=== PATIENT | female | born 1950 | race Caucasian/White ===

== ENCOUNTER 2018-12-28 08:46 | Emergency (ER) | payer MEDICARE, OTHER, SELFPAY ==
[2018-12-28 08:50] VITALS: BP 166/96; PULSE 60; RESP 19; TEMP 36.5; O2SAT 100; BMI 20.5
--- NOTE | 2018-12-28 09:33 | ED.UPPEXIN ---
HPI - Extremity Injury (Upper) General Chief Complaint: Extremity Injury, Upper Stated Complaint: fell thursday, cut arm, swollen Time Seen by Provider: 12/28/18 08:50 Source: patient and family Mode of arrival: ambulatory Limitations: no limitations History of Present Illness HPI narrative: 68F non smoker presents with and chief complaint of R elbow pain after she stumbled while walking down some stairs over the weekend. She misstepped on a stair and hit her elbow on a corner and suffered a small abrasion. She had minimal bleeding which was stopped with a Band-Aid. She has full range of motion without pain and denies other injury. She has a bit of swelling and bruising on her medial elbow and wanted to be seen to be sure there is no significant infection or underlying injury. She denies any numbness, tingling or weakness MD complaint: injury to: left and right Onset (ago): day(s) Other injuries: none Handedness: right Place: home Severity: mild Relieving factors: none Exacerbating factors: movement of extremity Context: direct blow Associated symptoms: denies other symptoms Related Data Allergies Allergy/AdvReac Type Severity Reaction Status Date / Time No Known Drug Allergies Allergy Verified 12/28/18 09:01 Review of Systems Constitutional Denies chills, Denies fever(s), Denies lethargy and Denies weakness Eyes Denies change in vision, Denies eye discharge, Denies irritation and Denies loss of vision ENT Ears, Nose, Mouth, and Throat: Denies change in voice, Denies neck pain and Denies sore throat Cardiovascular Denies chest pain, Denies irregular heart rhythm, Denies lightheadedness, Denies palpitations, Denies dyspnea, Denies dyspnea on exertion and Denies orthopnea Respiratory Denies cough, Denies dyspnea, Denies dyspnea on exertion and Denies wheezing Gastrointestinal Gastrointestinal: Denies abdominal pain, Denies change in bowel habits, Denies diarrhea, Denies nausea and Denies vomiting Genitourinary Denies hematuria, Denies flank pain, Denies urinary incontinence and Denies urinary urgency Musculoskeletal Reports joint swelling, Reports limited range of motion and Denies neck pain Integumentary/Breasts Denies pruritus, Denies erythema, Denies rash and Denies wounds Neurologic Denies confusion, Denies loss of vision and Denies weakness Psychiatric Denies anxiety, Denies confusion, Denies depression, Denies homicidal ideation and Denies suicidal ideation Endocrine Denies palpitations Hematologic/Lymphatic Denies easy bruising Allergic/Immunologic Denies wheezing PFSH Social History Smoking Status: Never smoker Social History Smoking Status: Never smoker Exam Narrative Exam Narrative: GEN: AOx3 and in mild distress EYES: Pupils are equal, round, and reactive to light and accommodation. Extraoccular muscles are intact bilaterally. There is no subconjunctival hemorrhage or exudate. CHEST: Lungs are clear to auscultation bilaterally and free of wheezes, rales, or rhonchi. Heart rate is regular rhythm, there are no murmurs, clicks, rubs, or gallops. There is no chest wall tenderness. ABD: Abdomen is soft and nontender. There is no guarding or rebound. Bowel sounds are normal in all 4 quadrants. There is no mass or organomegaly. EXT: Full range of motion of the right elbow with minimal swelling and some ecchymosis on the medial aspect. She has full flexion extension as well as pronation and supination and no tenderness on bony prominences. She does have a very small well-healing, abrasion over her olecranon with no surrounding edema, erythema or warmth to suggest infection. It is healing appropriately SKIN: Warm, pink, and dry. No erythema or rash Initial Vital Signs Initial Vital Signs: Vital Signs Temperature 97.7 F 12/28/18 08:50 Pulse Rate 60 12/28/18 08:50 Respiratory Rate 19 12/28/18 08:50 Blood Pressure 166/96 H 12/28/18 08:50 Pulse Oximetry 100 12/28/18 08:50 Course Vital Signs - 8 hr 12/28/18 08:50 Temperature 97.7 F Pulse Rate 60 Respiratory Rate 19 Blood Pressure 166/96 H Pulse Oximetry 100 MDM - Extremity Injury (Upper) MDM Narrative Medical decision making narrative: Patient had a very low energy fall and superficial abrasion to her right elbow. Exam is very reassuring and there is no suggestion of infection. She has painless flexion, extension as well as pronation and supination without tenderness on the bone. We discussed x-rays and elected not to perform 1 as they are unlikely to change the disposition. Patient given return precautions and had all questions answered to her apparent satisfaction Discharge Plan Departure Patient Disposition: Home Clinical Impression: Contusion of elbow Qualifiers: Encounter type: initial encounter Laterality: left Qualified Code(s): S50.02XA - Contusion of left elbow, initial encounter Abrasion of elbow Qualifiers: Encounter type: initial encounter Laterality: left Qualified Code(s): S50.312A - Abrasion of left elbow, initial encounter Instructions: DI for Contusion Activity Restrictions/Additional Instructions: *You have been diagnosed with [elbow contusion and abrasion] *What to do: *Take medications as directed: Tylenol or Motrin for pain and swelling *Follow up with your primary care provider in 2-3 days, call for an appointment. Let them know you were seen in the Emergency Department and that we ask that you be seen in follow up *Return to ER if you should have any new, worsening or concerning symptoms, such as [worsening redness, pain, drainage or other concerns]
== END 2018-12-28 09:53 | disposition home or self-care (01) ==
PROVIDERS: Emergency Provider Emergency Medicine
DX: S50.312A Abrasion of left elbow, initial encounter (principal); S50.02XA Contusion of left elbow, initial encounter; W01.198A Fall on same level from slipping, tripping and stumbling with subsequent striking against other object, initial encounter
CPT/HCPCS: 99282

== ENCOUNTER 2022-02-07 13:14 | Emergency (ER) | payer MEDICARE, SELFPAY ==
[2022-02-07 13:29] VITALS: BP 122/71; PULSE 59; RESP 16; TEMP 37; O2SAT 98; BMI 20.9
--- NOTE | 2022-02-07 13:33 | DI.RAD.S_ITS ---
PROCEDURE: XR FOOT LT MIN 3V INDICATIONS: swelling, unable to bear weight TECHNIQUE: 3 views of the foot were acquired. COMPARISON: [facility], CR, XR ANKLE LT MIN 3V, 02/07/2022, 13:35. FINDINGS: Bones: There is a mildly displaced distal left fibular fracture which is better seen on comparison ankle radiographic series. There is soft tissue swelling of the left foot. No other acute fractures visualized. Mild degenerative changes of the left 1st metatarsophalangeal joint. Soft tissues: No tibiotalar joint effusion. Achilles tendon appears normal. IMPRESSION: Mildly displaced distal left fibular fracture. Left foot soft tissue swelling. Dictated by: Francisco Bowen M.D. on 02/07/2022 at 13:46 Approved by: Francisco Bowen M.D. on 02/07/2022 at 13:48
--- NOTE | 2022-02-07 13:34 | DI.RAD.S_ITS ---
PROCEDURE: XR ANKLE LT MIN 3V INDICATIONS: swelling, unable to bear weight TECHNIQUE: 3 views of the ankle were acquired. COMPARISON: None. FINDINGS: Bones: There is a mildly comminuted, mildly displaced fracture of the distal left fibula without significant widening of the ankle mortise. Remainder of the visualized osseous structures appear intact. Soft tissues: No tibiotalar joint effusion. Achilles tendon appears normal. There is moderate lateral malleolar soft tissue edema. IMPRESSION: Mildly comminuted, mildly displaced distal left fibular fracture. Dictated by: Francisco Bowen M.D. on 02/07/2022 at 13:48 Approved by: Francisco Bowen M.D. on 02/07/2022 at 13:52
--- NOTE | 2022-02-07 16:24 | ED.LOWEXIN ---
HPI - Extremity Injury (Lower) General Chief Complaint: Extremity Injury, Lower Stated Complaint: Slipped and hurt lt foot- pain/bruising/swelling Time Seen by Provider: 02/07/22 16:14 Source: patient Mode of arrival: Ambulatory History of Present Illness HPI Narrative: Patient complains of left ankle pain and swelling and bruising. Patient here with . Patient states 2 days ago was walking down the hill at their home. Slipped on a board and rolled her ankle. Has been limping since then. No numbness tingling or weakness. Has been trying to keep it elevated however they have guess in town and have been busy entertaining them. Has not been resting and elevating her ankle and foot as much as she should be Related Data Allergies Allergy/AdvReac Type Severity Reaction Status Date / Time No Known Drug Allergies Allergy Verified 02/07/22 13:32 Review of Systems Review of Systems Narrative: GENERAL: Denies chills, fatigue, malaise, fever, sweats. HEENT: Denies sinus pain, ear pain, sore throat RESPIRATORY: Denies dyspnea, cough CARDIOVASCULAR: Denies chest pain, palpitations GASTROINTESTINAL: Denies nausea, vomiting, abdominal pain : Denies dysuria, frequency, hematuria MUSCULOSKELETAL: Positive for muscle or bony pain SKIN: Denies rash, skin lesions NEUROLOGIC: Denies weakness, numbness ROS Unobtainable: All systems reviewed & are unremarkable except as noted in HPI and below Patient History Medical History Lumbar radiculopathy Social History Smoking Status: Never smoker Smoking Status: Never smoker alcohol intake frequency: 0-2 drinks per day Substance Use Type: does not use Exam Narrative Exam Narrative: GENERAL: in no distress, not toxic not dyspneic HEAD: Normocephalic. EXTREMITIES: No gross deformities. Examination left lower extremity. Nontender knee and proximal leg. Shoes and socks removed. There is edema and bruising at the lateral ankle and foot. Strong pedal pulse. Foot warm soft and pink otherwise. Light touch intact to toes. Able to wiggle toes. NEURO: AOx4. SKIN: Warm and dry PSYCH: Not anxious, is cooperative Initial Vital Signs Initial Vital Signs: Vital Signs Temperature 98.6 F 02/07/22 13:29 Pulse Rate 59 L 02/07/22 13:29 Respiratory Rate 16 02/07/22 13:29 Blood Pressure 122/71 02/07/22 13:29 Pulse Oximetry 98 02/07/22 13:29 Oxygen Delivery Method 02/07/22 13:29 Procedures Orthopedic Splinting/Casting Injury #1: Time of procedure: 16:26 Side: left Lower Extremity Injury Location: ankle Lower Extremity Immobilizer: posterior splint Other Orthopedic Equipment: crutches Post splinting neuro exam: intact Post splinting vascular exam: intact Additional Comments: placed by registered respiratory technician Course Course Course Narrative: No new issues during course of stay Orders Ordered: ED Orders 02/07/22 13:33 XR foot LT min 3V Stat 02/07/22 13:34 XR ankle LT min 3V Stat Reevaluation(s) Reevaluation #1: Patient tolerated splinting very well. Pain is controlled. Crutches provided. Orthopedic referral given. They desire discharge home. They agree with treatment plan. Time: 16:29 Vital Signs Vital signs: Vital Signs - 8 hr 02/07/22 13:29 Temperature 98.6 F Pulse Rate 59 L Respiratory Rate 16 Blood Pressure 122/71 Pulse Oximetry 98 Oxygen Delivery Method Room Air MDM - Extremity Injury (Lower) Differential Diagnosis Differential diagnosis: Likely ankle sprain and strain and ankle fracture Imaging Data Extremity x-ray #1: Radiologist's Impression: [address] [id number] XRay Report Signed Patient: Rhina Nicole MR#: [id number] : 1950 Acct:[id number] Age/Sex: 71 / F Date of Service: 02/07/22 Loc: ED Accession Number: [id number] ?? Procedure: XR ankle LT min 3V Ordering Provider: Jose Avelar MD PROCEDURE:? XR ANKLE LT MIN 3V ? INDICATIONS:? swelling, unable to bear weight ? TECHNIQUE:? 3 views of the ankle were acquired.? ? COMPARISON:? None. ? FINDINGS:? ? Bones:? There is a mildly comminuted, mildly displaced fracture of the distal left fibula without significant widening of the ankle mortise. Remainder of the visualized osseous structures appear intact. ? Soft tissues:? No tibiotalar joint effusion.? Achilles tendon appears normal.? There is moderate lateral malleolar soft tissue edema. ? ? IMPRESSION:? Mildly comminuted, mildly displaced distal left fibular fracture. ? Dictated by: Francisco Bowen M.D. on 02/07/2022 at 13:48 ? ? Approved by: Francisco Bowen M.D. on 02/07/2022 at 13:52 ? Extremity x-ray #2: Radiologist's Impression: [address] [address] XRay Report Signed Patient: Rhina Nicole MR#: [id number] : 1950 Acct:[id number] Age/Sex: 71 / F Date of Service: 02/07/22 Loc: ED Accession Number: [id number] ?? Procedure: XR foot LT min 3V Ordering Provider: Jose Avelar MD PROCEDURE:? XR FOOT LT MIN 3V ? INDICATIONS:? swelling, unable to bear weight ? TECHNIQUE:? 3 views of the foot were acquired.? ? COMPARISON:? [facility], CR, XR ANKLE LT MIN 3V, 02/07/2022, 13:35. ? FINDINGS:? ? Bones:? There is a mildly displaced distal left fibular fracture which is better seen on comparison ankle radiographic series.? There is soft tissue swelling of the left foot.? No other acute fractures visualized.? Mild degenerative changes of the left 1st metatarsophalangeal joint. ? Soft tissues:? No tibiotalar joint effusion.? Achilles tendon appears normal.? ? ? IMPRESSION:? Mildly displaced distal left fibular fracture.? Left foot soft tissue swelling. ? ? Dictated by: Francisco Bowen M.D. on 02/07/2022 at 13:46 ? ? Approved by: Francisco Bowen M.D. on 02/07/2022 at 13:48 ? MDM Narrative Medical decision making narrative: Appropriate for discharge home. Exam otherwise reassuring. Return precautions reviewed patient . Referral for Orthopedics given. Patient tolerating splint very well. Pain is controlled. They do agree continue Tylenol or ibuprofen at home. Discharge Plan Departure Patient Disposition: Home Clinical Impression: Ankle fracture Instructions: DI for Ankle Fracture Activity Restrictions/Additional Instructions: May continue home Tylenol or ibuprofen for pain. Keep in splint until office appointment with Dr. Hallman. Use crutches when ambulating. Return if worse if any questions or concerns if any numbness or tingling or weakness or increased pain to the foot or ankle. Call Dr. Hallman office on Thursday for appointment to be seen in a week. Referrals: Aviva Keenan MD [Primary Care Provider] - Yvonne Hallman MD [Physician] - Visit Report Forms: Patient Portal/API
== END 2022-02-07 16:47 | disposition home or self-care (01) ==
PROVIDERS: Emergency Provider Emergency Medicine; PCP Family Medicine
DX: S82.62XA Displaced fracture of lateral malleolus of left fibula, initial encounter for closed fracture (principal); X50.1XXA Overexertion from prolonged static or awkward postures, initial encounter
CPT/HCPCS: 73610; 73630; 99281; 99283